=== PATIENT | female | born 1955 | race Caucasian/White ===

== ENCOUNTER → 2016-12-03 16:57 | Outpatient (CLI) | payer MEDICARE ==
[2014-10-11 08:37] VITALS: BMI 31.8
[~2016-12-03 16:57] MED LIST: CIPRO500 MG PO; HYDROCODONE-APA1 TAB PO; PERCODAN TABLET1 TAB PO; PRINIVIL10 MG PO; PROZAC20 MG PO; SOMA250 MG PO; XANAX0.25 MG PO
== END | disposition home or self-care (01) ==
LOC: D.MAMMO
DX: Z12.31 Encounter for screening mammogram for malignant neoplasm of breast (principal)

== ENCOUNTER 2018-06-07 07:00 | Day surgery (SDC) | payer MEDICARE ==
[2018-06-06 11:14] LABS: BASOPHILS 0.3 % (0-2); HEMATOCRIT 37.1 % (36.0-48.0); LYMPHOCYTES 42.9 % (15-50); MCH 29.1 pg (26.0-34.0); MCHC 32.3 g/dL (31.0-37.0); MEAN PLATELET VOLUME 9.1 fL (7.4-10.4); MONOCYTES 6.5 % (2-11); NEUTROPHILS 46.3 % (40-80); PLATELET COUNT 386 10x3/uL (130-400); RBC 4.12 10x6/uL (4.00-5.40); RDW 14.5 % (11.5-14.5); WBC 7.4 10x3/uL (4.8-10.8)
[2018-06-06 11:32] LABS: APTT 31.9 SECONDS (22.8-39.4); INR 0.94 (0.85-1.17); PROTIME 12.2 SECONDS (11.6-15.0)
[2018-06-06 11:45] LABS: CALC OSMOLALITY 281 mosm/kg (275-300); CALCIUM 9.1 mg/dL (8.5-10.1); CARBON DIOXIDE 29.1 mmol/L (21.0-32.0); CHLORIDE - SERUM 103 mmol/L (98-107); CREATININE - SERUM 0.8 mg/dL (0.6-1.3); GLUCOSE 124 mg/dL (74-106); POTASSIUM - SERUM 3.7 mmol/L (3.5-5.1); SODIUM 140 mmol/L (136-145); UREA NITROGEN 17 mg/dL (7-18); eGFR NON AFRICAN AMERICAN 77 mL/min (90-120)
[2018-06-07] VITALS (10 sets, daily range): BP systolic 125–153; BP diastolic 48–99; Ht 162.6 cm; Wt 79.5 kg
[~2018-06-07] VITALS: Ht 162.6 cm; Wt 79.5 kg
--- NOTE | ~2018-06-07 | HEMODYNAMI ---
PATIENT:LAWANDA TAYLOR MEDICAL RECORD: [id number] : 57 LOCATION:[facility] ADMISSION DATE: 06/07/18 Generatedon:06/07/201810:28 Patient name: LAWANDA TAYLOR Patient #: [id number] SSN: : 1955 Date of study: 06/07/2018 Page: Of Hemodynamic Procedure Report Patient Data Patient Demographics Procedure consent was obtained First Name: LAWANDA Gender: Female Last Name: BRANDON : 1955 Middle Initial: DECEMBER Age: 62 year(s) Patient #: [id number] Race: Unknown Additional ID: [id number] Contact details Address: [address] [place] [address] rd State: [place] City: [place] Zip code: [address] Past Medical History Allergies: No known allergies Admission Admission Data Admission Date: 06/07/2018 Admission Time: 7:00 Procedure Procedure Types Cath Procedure Peripheral Cath Diagnostic Procedure Nephro Procedure Description Procedure Date Procedure Date: 06/07/2018 Procedure Start Time: 10:00 Procedure Staff Name Function Courtney Butler MD Performing Physician Daniel Bruno RT Monitor Yi Barclay RT Scrub Shereen Olsen RN Nurse Procedure Data Cath Procedure Fluoroscopy Diagnostic fluoroscopy Total fluoroscopy Time: 1.9 time: 1.9 min min Diagnostic fluoroscopy Total fluoroscopy dose: 41 dose: 41 mGy mGy Contrast Material Contrast Material Type Amount (ml) Isovue 300 20 Procedure Medications Medication Administration Route Dosage Heparin Flush Bag added to field 1 bags (1000units/500ml NS) Lidocaine 1% added to field 20 unlisted medication 1 Versed I.V. 1 mg Fentanyl I.V. 50 mcg Versed I.V. 1 mg Fentanyl I.V. 50 mcg Hemodynamics Rest Heart Rate: 58 (bpm) Snapshots Pre Cath Intra NCS Post Cath Vital Signs Time Heart Resp SPO2 etCO2 NIBP (mmHg) Rhythm Pain Sedation Rate (ipm) (%) (mmHg) Status Level (bpm) 9:43:58 62 22 97 0 Measuring NSR 0 (11) 10(A) , No pain 9:45:22 60 18 98 0 Time NSR 0 (11) 10(A) Exceeded , No pain 9:50:21 61 18 98 Measuring NSR 0 (11) 10(A) , No pain 9:51:45 60 15 98 38.6 Time NSR 0 (11) 10(A) Exceeded , No pain 9:55:06 62 14 100 32.6 186/90(118) NSR 0 (11) 10(A) , No pain 9:59:44 61 17 100 31.8 187/81(138) NSR 0 (11) 10(A) , No pain 10:04:21 61 11 100 32.5 175/74(134) NSR 0 (11) 10(A) , No pain 10:08:49 6 100 33.3 151/75(136) NSR 0 (11) 10(A) , No pain 10:13:09 61 7 100 37.1 153/84(126) NSR 0 (11) 10(A) , No pain 10:18:08 64 7 100 37.9 Measuring NSR 0 (11) 10(A) , No pain 10:18:31 65 7 100 38.6 155/82(133) NSR 0 (11) 10(A) , No pain 10:22:55 67 13 100 34.8 152/90(117) NSR 0 (11) 10(A) , No pain 10:27:17 65 8 100 35.6 159/89(123) NSR 0 (11) 10(A) , No pain Medications Time Medication Route Dose Verified Delivered Reason Notes Effec tiveness by by 9:53:41 Heparin Flush added 1 M J Luke Valdez J Luke used for Bag to bags MD SKAGGS procedure (1000units/500ml field NS) 9:53:53 Lidocaine 1% added 20ml M J Long M J Luke used for to vial MD SKAGGS procedure field 9:54:15 CEFEPIME IV 1GM M Oralia Olsen RN 10:01:50 Versed I.V. 1 mg M Oralia Regan for MD Olsen RN sedation 10:02:01 Fentanyl I.V. 50 M J Luke Regan for mcg MD Olsen RN sedation 10:05:13 Versed I.V. 1 mg M J Luke Hookody for MD Raúl EPSTEIN sedation 10:05:25 Fentanyl I.V. 50 Courtney Regan for [facility] [place] Olsen RN sedation Procedure Log Time Note 9:32:34 Daniel Streetandreas RT (R) (CV) sent for patient. Start room use. 9:32:46 Time tracking: Regular hours (M-F 7:00 - 5:00) 9:32:51 Plan of Care:Hemodynamics will remain stable., Cardiac rhythm will remain stable., Comfort level will be maintained., Respiratory function will remain adequate., Patient/ family verbilizes understanding of procedure., Procedure tolerated without complication., Recovers from procedure without complications.. 9:32:57 Patient received from Outpatients to IR Alert and oriented. Tansferred to table in Prone position. 9:32:58 Correct patient and procedure confirmed by team. 9:33:00 Signed procedure consent form obtained from patient. 9:33:01 ECG and BP/O2 sat monitors applied to patient. 9:33:02 Full Disclosure recording started 9:33:03 - 9:33:03 - 9:33:06 H&P Date Dictated: 06/07/2018 H&P Addendum completed by physician on da y of procedure. (MUST COMPLETE FOR ALL OUTPATIENTS). 9:33:07 Pre-procedure instructions explained to patient. 9:33:07 Pre-op teaching completed and patient verbalized understanding. 9:33:09 Family unavailable. 9:33:11 Patient NPO since Midnight. 9:33:15 Is the patient allergic to Iodine/contrast media? No. 9:33:25 Patient allergic to No known allergies 9:33:27 ----Pre-sedation anethsthesia assessment.---- 9:33:30 Previous problem with sedation/anesthesia? No ? 9:33:31 Snore? Yes 9:33:33 Sleep apnea? No 9:33:35 Deviated septum? No 9:33:36 Opens mouth fully? Yes 9:33:38 Sticks out tongue? Yes 9:33:41 Airway obstruction? No ? 9:33:46 Dentures? Yes out 9:33:57 Patient pain scale 0/10 no pain. 9:34:03 IV patent on arrival in right hand with 0.9% NaCl at [facility]. 9:34:04 Sharps counted by scrub and verified by R.N. 9:34:05 Alarms reviewed by R. N. 9:34:12 Right Lumbar area was prepped with chlora-prep and draped in sterile fashion 9:34:26 Use device set IR Diagnostic 9:34:29 Bag Decanter (2002S) opened to sterile field. 9:34:29 Sterile Angiographic Pack opened to sterile field. 9:42:10 Baseline sample Acquired. 9:42:10 Vital chart was started 9:53:41 Heparin Flush Bag (1000units/500ml NS) 1 bags added to field was administered by Courtney Butler MD; used for procedure; 9:53:53 Lidocaine 1% 20ml vial added to field was administered by Courtney Butler MD; used for procedure; 9:54:15 CEFEPIME 1GM IV was administered by Shereen Olsen RN; ; 9:57:05 Physician arrived 9:57:05 --------ALL STOP TIME OUT------ 9:57:06 Final Timeout: patient, procedure, and site verified with staff and physician. All members of the team are in agreement. 9:57:11 RIGHT Lumbar site verified by team. 9:57:22 Sedation plan: IV Moderate Sedation Medication:Versed, Fentanyl 10:00:08 Procedure started. 10:00:18 Local anesthetic to Lumbar area with Lidocaine 1% by Courtney Butler MD.INITIAL ACCESS ONLY 10:01:29 KIT, INTRODUCER ACCUSTICK II W/C ([id number]) opened to sterile field. 10:01:30 GLIDE CATHETER 5FR ANGLED 65cm (CG507) opened to sterile field. 10:01:42 Tegaderm 6 x 8 (1628) opened to sterile field. 10:01:50 Versed 1 mg I.V. was administered by Shereen Olsen RN; for sedation; 10:02:01 Fentanyl 50 mcg I.V. was administered by Shereen Olsen RN; for sedation ; 10:03:40 CHIBA 22 X 15 needle opened to sterile field. 10:05:13 Versed 1 mg I.V. was administered by Shereen Olsen RN; for sedation; 10:05:25 Fentanyl 50 mcg I.V. was administered by Shereen Olsen RN; for sedation ; 10:20:37 Procedure ended.(Physican Out) 10:20:57 Fluoroscopy time 01.90 minutes. 10:21:05 Fluoroscopy dose: 41 mGy 10:21:05 Flurop Dose total: 41 10:21:10 Contrast amount:Isovue 300 20ml. 10:21:11 Sharps counted by scrub and verified by R.N. 10:21:14 Insertion/operative site no bleeding no hematoma. 10:21:18 Post-op/insertion site Right Lumbar area dressed using a 4 x 4 and Tegaderm. 10:27:52 Post procedure instruction explained to patient.Patient verbalizes understanding. 10:27:53 Procedure and supply charges have been captured, reviewed, submitted an d are correct. 10:28:00 Report given to Outpatients. 10:28:04 Patient transfered to Outpatients with Stretcher. 10:28:32 Vital chart was stopped Device Usage Item Name Manufacture Quantity Catalog Hospital Part Current Minimal Lot# / Number Charge Number Stock Stock Serial# Code Bag Decanter Microtek 1 [id number] () [employer] Sterile Cardinal 1 [id number] 5 Angiographic Health Pack KIT, Douglas 1 [id number] [id number] [id number] 5 [id number] INTRODUCER Scientific ACCUSTICK II W/C ([id number]) GLIDE Terumo 1 CG507 395659 [id number] 5 CATHETER 5FR ANGLED 65cm (CG507) Tegaderm 6 x 3M 1 1628 215108 052366 5 8 (1628) CHIBA 22 X [facility] 1 [id number] 5 15 needle Signature Audit [place] Stage Time Signature Unsigned Intra-Procedure 06/07/2018 Daniel 10:28:30 AM Damion RT (R) (CV) Signatures Monitor : Daniel Signature : Damion RT Date : Time : [place] [id number] [facility] [place] [address]
--- NOTE | ~2018-06-07 | OP ---
PATIENT NAME: LAWANDA TAYLOR MEDICAL RECORD: [id number] :57 LOCATION:[id number] ADMISSION DATE: SURGEON: KENDY BIRMINGHAM MD DATE OF OPERATION: 06/07/2018 SURGEON: Kendy Birmingham MD ANESTHESIA: General anesthesia by Derek Douglas CRNA. DIAGNOSIS: Right lower pole and mid renal stones about 50 mm linear length cumulatively. PROCEDURES: Cystoscopy, right percutaneous nephrolithotomy. FINDINGS: Four radiodense renal stones. Three of them are about 10 mm in size. The last stone is elongated and about 20 mm in length. BLOOD LOSS: Minimal. CLINICAL HISTORY: This is a 62-year-old female with recurrent urinary tract infections. Currently, she is on Cipro for another urinary tract infection. She had a CT scan, which showed bilateral renal stones. There was a 4-mm left renal stone and multiple large stones on the right side. She had left ureteroscopy recently and the stone was found to be gone. She comes today to have the right-sided kidney stones treated. Looking at her KUB, I can see about 4-5 stones in the kidney. This was confirmed on the CT scan. Earlier today, she had a right percutaneous nephroureteral access placed by interventional radiology. This goes through the back into the kidney down the ureter and into the bladder. She comes now to have the percutaneous nephrolithotomy performed. She is not allergic to any medications. She was given Ancef office professional to the OR. DESCRIPTION OF PROCEDURE: The patient was initially placed in supine position and she had induction of general anesthesia. She was then placed in frog-leg position and prepped and draped. Cystoscopy was performed using a 21-Bangladeshi cystoscope. Grasping forceps were used to retrieve the distal end of the nephroureteral catheter from the bladder and pull it out through the urethra. Last when we passed our Super Stiff wire from above, the wire will come out through the urethral meatus and it can be clamped below in order to prevent backwards migration of the wire and loss of our access. The patient was then turned into the prone position on the Chilo frame. All pressure points were padded. The nephroureteral catheter was accessed with an Amplatz Super Stiff wire. Once the wire came out through the urethra, the circulating nurse then put a hemostat clamp on it to prevent backwards migration of the wire and loss of our access. The nephroureteral catheter was then removed completely through the back. A 1-cm incision was made on either side of the wire using a #15 scalpel. The dual-lumen catheter was then inserted over the wire and the dual lumen catheter was placed into the proximal ureter. Here through the second lumen, a safety wire which is a Sensor wire was placed. This also migrated out through the urethra, we did not put a wire on this. The safety wire was clamped to the drapes and we worked over the Super Stiff wire. The NephroMax balloon dilator was then introduced. The balloon was inflated to 16 atmospheres of pressure. The working sheath was inserted over the balloon. The working sheath has a 30-Bangladeshi size. Going in with the nephroscope, we used the [place] LithoClast ultrasonic modality to remove the blood clots within the OPERATIVE REPORT [id number] BRANDONLAWANDAMEGAN VASQUEZ renal pelvis. We immediately encountered 2 approximately 1 cm stones at the UP junction. Using the Socset. Ixbc-S-Wkrarz stone basket, we managed to retrieve each of these in turn and these were removed and sent to pathology. We then examined the upper pole mable, but this was clear of stones. On fluoroscopy, we could still 2-3 possibly large radiodense stones in the lower pole calyx. We then swung our scope into the lower pole and identified the stones. The basket was used to remove them all. The last stone was in the very lowest pole mable. It is actually an elongated stone with a little waist in the middle, thus it gave the appearance of 2 stones, but it was actually just one long stone. Once all the stones were removed, we could see no further radiodensities on fluoroscopy. On nephroscopy, we saw no further stones. The scope was then removed. The 24-Bangladeshi nephrostomy tube was inserted over the Super Stiff wire and through the sheath and down into the renal pelvis. Once the nephrostomy tube was in correct position, the working sheath as well as all the wires were completely removed. The nephrostomy tube was then sutured to the skin using 2-0 nylon. Dressings were applied to the skin and the nephrostomy tube was put to bag drainage. The patient was then turned back into the supine position. She was extubated and awakened. The Kendall catheter was removed. I will keep her in hospital for pain control and management of the nephrostomy tube. If she remains relatively clear on postoperative day #2 then, I will remove the nephrostomy tube and send her home without it. TRANSINT:[id number] Voice Confirmation ID: [id number] DOCUMENT ID: [id number] KENDY BIRMINGHAM MD at 1344 CC: [id number] DICTATION DATE: 06/07/18 1301 ARTIFICIAL FLOWER MAKER: 06/07/18 1324 [address] [place] [id number] [place] [id number]
[~2018-06-07 07:00] MED LIST changes: +LOSARTAN/HCT TAB 50-; +PEPCID AC20 MG PO
[2018-06-08 05:41] VITALS: BP 147/67
[2018-06-08 09:02] VITALS: BP 156/64
[2018-06-08 13:03] VITALS: BP 148/68
[2018-06-08 16:05] VITALS: BP 91/50
[2018-06-08 20:00] VITALS: BP 136/62
[2018-06-09 00:46] VITALS: BP 134/71
[2018-06-09 05:35] VITALS: BP 143/61
[2018-06-09 08:52] VITALS: BP 154/49
[2018-06-16 11:20] LABS: CALCULI - AMMONIUM ACID URATE 10 % (()); CALCULI - CA OXALATE MONOHYDR 30 % (()); CALCULI - CALCIUM PHOSPHATE 40 % (()); CALCULI - COLOR Tan (()); CALCULI - MAGNESIUM AMMON PHOS 20 % (())
== END 2018-06-09 12:15 | disposition home or self-care (01) ==
LOC: D.OPS 07:00 → D.MS 07:00 → D.PAN 08:30 → D.OPS 08:30 → D.PAN 09:00 → D.MS 13:08 → D.OPS 06-09 12:15
PROVIDERS: Radiology Vascular & Interventional Radiology; Urology
DX: N20.0 Calculus of kidney (principal); Z01.812 Encounter for preprocedural laboratory examination